=== PATIENT | female | born 1960 | race Caucasian/White ===

== ENCOUNTER 2017-12-18 06:15 | Day surgery (SDC) | payer OTHER ==
[~2017-12-18 06:15] MED LIST: CRESTOR PO; DEXLANSOPRAZOLE PO; FOLIC ACID1 MG PO; GABAPENT PO; LEVOXYL88 MCG PO; METFORMIN HCL500 MG PO; PAXIL30 MG PO; [UNRECOGNIZED DRUG - OTHER] PO; [UNRECOGNIZED DRUG - OTHER] PO
== END 2017-12-18 13:15 | disposition home or self-care (01) ==
LOC: CIR.AMB 06:15
DX: M75.121 Complete rotator cuff tear or rupture of right shoulder, not specified as traumatic (principal); M19.011 Primary osteoarthritis, right shoulder; M75.21 Bicipital tendinitis, right shoulder

== ENCOUNTER → 2018-07-30 | Day surgery (SDC) | payer OTHER | END | disposition home or self-care (01) | LOC: ADM 07-21 07:30 → CIR.AMB 06:45 | DX: M75.01 Adhesive capsulitis of right shoulder (principal) ==

== ENCOUNTER 2020-12-29 10:30 | Inpatient (IN) | payer OTHER ==
[~2020-12-29] VITALS: Ht 160 cm; Wt 73.5 kg
[2020-12-29] MEDS ORDERED: DEXILANT60 MG PO (12:30)
[2020-12-29] MEDS ORDERED: LEVOXYL88 MCG PO (12:30)
[2020-12-29] MEDS ORDERED: GABAPENT PO (12:30)
[2020-12-29] MEDS ORDERED: CRESTOR10 MG PO (12:31)
[2020-12-29] MEDS ORDERED: FOLIC ACID PO (12:31)
[2020-12-29] MEDS ORDERED: METHROTEXATE (12:33)
[2020-12-29] MEDS ORDERED: ENBREL50 MG/1 M1 SQ (12:34)
[2020-12-29] MEDS ORDERED: [UNRECOGNIZED DRUG - OTHER] PO (12:34)
[2020-12-29] MEDS ORDERED: JANUMET XR 1001 EACH PO (12:35)
[2021-01-05] MEDS ORDERED: METHOTREXATE2.5 MG (07:56)
[2021-01-05] MEDS ORDERED: FOLIC ACID1 MG (07:56)
[2021-01-05] MEDS ORDERED: GABAPENTIN800 M1 (07:56)
[2021-01-05] MEDS ORDERED: INTESTINEX680 M1 (07:57)
== END 2021-01-07 16:55 | disposition home or self-care (01) | DRG 331 ==
LOC: SURG 01-05 05:50 → O/R 01-05 05:50 → SURH 01-05 07:00 → SURG 01-05 14:17
PROVIDERS: ADMIT Colon & Rectal Surgery; ATTEND Colon & Rectal Surgery
PROC: 0DTP4ZZ Resection of Rectum, Percutaneous Endoscopic Approach (ICD-10-PCS; 2021-01-05)
PROC: 0DJD8ZZ Inspection of Lower Intestinal Tract, Via Natural or Artificial Opening Endoscopic (ICD-10-PCS; 2021-01-05)
PROC: 0DBN4ZZ Excision of Sigmoid Colon, Percutaneous Endoscopic Approach (ICD-10-PCS; principal; 2021-01-05 07:00)
DX: K57.20 Diverticulitis of large intestine with perforation and abscess without bleeding (principal)

== ENCOUNTER → 2021-01-03 | Day surgery (SDC) | payer OTHER ==
[~2021-01-03] MED LIST changes: +CRESTOR10 MG PO; +DEXILANT60 MG PO; +ENBREL50 MG/1 M1 SQ; +FOLIC ACID PO; +FOLIC ACID1 MG; +GABAPENTIN800 M1; +INTESTINEX680 M1; +JANUMET XR 1001 EACH PO; +METHOTREXATE2.5 MG; +METHROTEXATE; +[UNRECOGNIZED DRUG - OTHER] PO
== END | disposition home or self-care (01) ==
LOC: AMB-ENDOS 10:04
PROVIDERS: ATTEND Colon & Rectal Surgery
DX: K57.32 Diverticulitis of large intestine without perforation or abscess without bleeding (principal); K64.8 Other hemorrhoids; Z12.11 Encounter for screening for malignant neoplasm of colon